=== PATIENT | male | born 1940 | race Caucasian/White ===

== ENCOUNTER → 2016-12-26 | Outpatient (CLI) | payer MEDICARE ==
[~2016-12-26] MED LIST: ADVI200C5 PO; ALEV220C2 PO; ATEN25TA PO; ATEN50TA2 PO; CENTTAB36 PO; COUM2.5T11 PO; PERC5TAB6 PO; TYLE325T5 PO; ZOCO20TA PO
[2016-12-26 11:02] LABS: MEAN CORPUSCULAR HEMOGLOBIN 29.9 pg (27.0-33.0); MEAN CORPUSCULAR VOLUME 87.8 fl (80.0-96.0); RED CELL DISTRIBUTION WIDTH 13.5 % (11.5-14.5); WHITE BLOOD COUNT 8.2 K/mm3 (4.0-10.0)
[2016-12-26 11:24] LABS: INR 1.19
[2016-12-26 11:35] LABS: ALBUMIN 4.2 GM/DL (3.2-5.2); ALKALINE PHOSPHATASE 69 U/L (45-117); ALT/SGPT 22 U/L (12-78); ANION GAP 10 MEQ/L (8-16); AST/SGOT 13 U/L (15-37); BILIRUBIN,TOTAL 0.6 MG/DL (0.2-1.0); BLOOD UREA NITROGEN 24 MG/DL (7-18); CALCIUM LEVEL 9.6 MG/DL (8.8-10.2); CARBON DIOXIDE LEVEL 25 MEQ/L (21-32); CHLORIDE LEVEL 108 MEQ/L (98-107); CREATININE FOR GFR 1.21 MG/DL (0.70-1.30); GLOMERULAR FILTRATION RATE > 60.0 (>42); GLUCOSE, FASTING 94 MG/DL (83-110); POTASSIUM SERUM 4.4 MEQ/L (3.5-5.1); SODIUM LEVEL 143 MEQ/L (136-145)
--- NOTE | 2016-12-26 15:02 | REP ---
CHEST X-RAY: Two views. HISTORY: Atrial fibrillation and gastroesophageal reflux. COMPARISON STUDY: September 14, 2015. FINDINGS: The lungs are well inflated and clear. The pleural angles are sharp. Heart size is normal. Pulmonary vasculature is not increased. The aorta is somewhat tortuous. No significant bony abnormality is seen. IMPRESSION: No active disease. Signed by Harjeet Lentz MD 12/26/2016 04:00 P
--- NOTE | 2016-12-26 17:58 | ECGEPIP ---
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 Electronically Signed On 12-26-2016 17:57:39 EDT by Efrain Ray
== END ==
LOC: M ADMPAT 09:12
PROVIDERS: ATTEND Orthopaedic Surgery
DX: M25.562 Pain in left knee (principal)

== ENCOUNTER 2017-01-09 05:35 | Inpatient (IN) | payer MEDICARE ==
[2016-12-26 09:57] VITALS: BP 124/82
--- NOTE | 2017-01-05 13:26 | HPE ---
DATE OF ADMISSION: 01/09/2017 ADMITTING DIAGNOSIS: Symptomatic left knee osteoarthritis. HISTORY OF PRESENT ILLNESS: This is a pleasant male with continuing symptomatic left knee osteoarthritis. He has consented for a left total knee arthroplasty per Dr. Primitivo Hu. Medical optimization with Dr. Ga per [facility]. ALLERGIES: He had some sort of edema in his lower legs after receiving PENICILLIN post back procedure. MEDICATION LIST: - atenolol 50, one tablet orally once daily Past medical problem list includes symptomatic left knee osteoarthritis. Hypertension. History of atrial fibrillation. Hypercholesteremia. BPH with associated nocturia. Chronic back pain. Vitamin D deficiency. Polymyalgia rheumatica. Renal calculi. 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 History of abnormal resting EKG. His active medical history is symptomatic left knee osteoarthritis. Essential hypertension. Polymyalgia rheumatica. BPH with lower urinary tract symptoms. Hypercholesterolemia. Vitamin D deficiency. His family history is positive for hypertension, hypercholesteremia, arthritis, cancer and thyroid disease. SOCIAL HISTORY: He is a former smoker, occasionally consumes ethanol. Denies illicit drugs. REVIEW OF SYSTEMS: Denies chest pain, shortness of breath, dyspnea on exertion , fever, chills, malaise, upper respiratory or urinary tract symptoms. PHYSICAL EXAMINATION: He is a pleasant, well-developed, well-nourished, white male in no acute distress. Alert oriented times three. Mood and affect are appropriate. Height 70 inches, weight 193. Temperature 97.6, heart rate 64. He ambulates slow steady with favoring of his right lower extremity, antalgia about his left. Bilateral lower extremity is benign, noninfectious looking. Left knee not effused, ecchymotic or erythematous, not hot to touch. He has positive joint line tenderness medially to palpation. Crepitance noted through flexion and extension. Range of motion zero in extension, flexion is past 90. PFJ congruent, static and dynamic. He is stable about the collateral ligaments. Patellar and quad tendons without palpable defects. Can do straight leg raise. No popliteal fossa mass or pain. Left hip range of motion is not limited or irritable through internal and external range of motion. Bowel sounds times four, soft, nontender. Chest rises symmetrically. Lungs clear to auscultation. Neck supple. Negative jugular venous distention (JVD) or bruits. Normocephalic. Chest x-ray showed no acute cardiopulmonary process as read by Dr. Harjeet Lentz on 12/26/2016 via [facility]. EKG result, as read by Dr. Ray, showed sinus bradycardia, left axis deviation. Rule out prior OK. Rhythm change from last study, on 09/29 09/23, showing atrial fibrillation. Labs were reviewed. Nasal sinus culture showed a few Staphylococcus aureus, normal paul present. Urine culture shows no growth. Patient's BUN was 24, chloride level 108. AST 22 , SGOT 13. Prothrombin time 15.2. IMPRESSION: 1. Symptomatic left knee osteoarthritis. 2. Patient consented for left total knee arthroplasty per Dr. Primitivo Hu. 3. Medical optimization per Dr. Ga. 4. On-call to operating room (OR) 600 mg IV clindamycin per PENICILLIN ALLERGY. 5. Sequential compressive device (SCD) and thromboembolism deterrents (TEDs) in OR. MTDD
[2017-01-09] VITALS (7 sets, daily range): BP systolic 127–151; BP diastolic 58–75
[~2017-01-09] VITALS: Ht 182.9 cm; Wt 87.1 kg
[2017-01-09] MEDS ORDERED: LR 1,000 ML IV SCH ×3 (05:45→09:45)
[2017-01-09] MEDS ORDERED: VANCOMYCIN HCL 1,000 MG, VIAL MATE ADAPTER 1 EACH in D5W 250 ML IV ONE (05:45)
[2017-01-09] MEDS ORDERED: ACETAMINOPHEN 500 MG TAB PO ONE (05:45)
[2017-01-09] MEDS ORDERED: fentaNYL 100 MCG/2 ML INJECTION (J3010) As Ordered ONE ×3 (06:41→07:34)
[2017-01-09] MEDS ORDERED: MIDAZOLAM INJ 2 MG/2 ML VIAL (J2250) As Ordered ONE ×2 (06:41→06:59)
[2017-01-09] MEDS ORDERED: PROPOFOL 200 MG/20 ML VIAL As Ordered ONE (06:59)
[2017-01-09] MEDS ORDERED: LIDOCAINE 2% INJ 100 MG/5 ML SDV (FOR ANES.) As Ordered ONE (06:59)
[2017-01-09] MEDS ORDERED: TRANEXAMIC ACID 100 MG/ML 10ML VIAL As Ordered ONE (07:10)
[2017-01-09] MEDS ORDERED: ceFAZolin 1GM INJ (J0690) As Ordered ONE (07:10)
[2017-01-09] MEDS ORDERED: BUPIVACAINE HCL 0.5% 10 ML VIAL As Ordered ONE (07:10)
[2017-01-09] MEDS ORDERED: BUPIVACAINE HCL 0.25% 30 ML VIAL As Ordered ONE (07:10)
[2017-01-09] MEDS ORDERED: EPINEPHrine INJ 1 MG/ML 1ML VIAL/AMP As Ordered ONE (07:11)
[2017-01-09] MEDS ORDERED: ROPIvacaine 0.5% 30 ML INJECTION (J2795) As Ordered ONE ×2 (07:23→07:44)
[2017-01-09] MEDS ORDERED: CLINDAMYCIN INJ 900MG/6ML VIAL As Ordered ONE (07:24)
[2017-01-09] MEDS: ROPIvacaine 0.5% 30 ML INJECTION (J2795) As Ordered ONE ×2 (07:41→08:22)
[2017-01-09] MEDS: TRANEXAMIC ACID 100 MG/ML 10ML VIAL As Ordered ONE ×2 (07:45→08:22)
[2017-01-09] MEDS ORDERED: MIDAZOLAM INJ 2 MG/2 ML VIAL (J2250) IV ONE ×3 (08:00→09:00)
[2017-01-09] MEDS ORDERED: fentaNYL 100 MCG/2 ML INJECTION (J3010) IV ONE ×3 (08:00→09:00)
[2017-01-09] MEDS ORDERED: ONDANSETRON 4MG/2ML VIAL (J2405) As Ordered ONE (08:05)
[2017-01-09] MEDS ORDERED: MORPHINE PCA 1MG/ML 100ML CADD As Ordered ONE (08:55)
[2017-01-09] MEDS: ATENOLOL 50 MG TAB PO SCH (09:00)
[2017-01-09] MEDS ORDERED: ACETAMINOPHEN TAB 650MG DOSE (2X325MG) PO PRN (09:45)
[2017-01-09] MEDS ORDERED: PATIENT IS CURRENTLY ON AN ON-Q PAIN BUSTER PAIN RELIEF SYSTEM XX SCH (09:45)
[2017-01-09] MEDS ORDERED: ONDANSETRON 4MG/2ML VIAL (J2405) IV PRN ×2 (09:45)
[2017-01-09] MEDS ORDERED: NALBUPHINE HCL 10 MG/ML AMP (J2300) IV PRN (09:45)
[2017-01-09] MEDS ORDERED: fentaNYL 100 MCG/2 ML INJECTION (J3010) IV PRN (09:45)
[2017-01-09] MEDS ORDERED: FLEET ENEMA PR PRN (09:45)
[2017-01-09] MEDS ORDERED: MORPHINE PCA 1MG/ML 100ML CADD IV PRN (09:45)
[2017-01-09] MEDS ORDERED: diphenhydrAMINE INJ 50MG/ML VIAL (J1200) IV PRN (09:45)
[2017-01-09] MEDS ORDERED: NALOXONE INJ 0.4 MG/1 ML VIAL (J2310) IV PRN (09:45)
[2017-01-09] MEDS ORDERED: EPIDURAL/PCA KEYS XX PRN (09:45)
[2017-01-09] MEDS ORDERED: METOCLOPRAMIDE INJ 10MG/2ML VIAL (J2765) IV PRN (09:45)
--- NOTE | 2017-01-09 10:03 | RO ---
DATE OF OPERATION: 01/09/2017 PREOPERATIVE DIAGNOSIS: Left knee degenerative arthritis. POSTOPERATIVE DIAGNOSIS: Left knee degenerative arthritis. PROCEDURE: Left total knee arthroplasty using a size 4 cruciate-retaining femoral component with a size 5 tibial tray with a 15 mm rotating-platform polyethylene insert and a 38 mm polyethylene button. The prosthesis was a PFC knee made by [employer]. All components were cemented. SURGEON: Page Hu MD DEVELOPMENT AND PLANNING ENGINEER: Smooth Munoz PA-C ANESTHESIA: Spinal with left femoral nerve block. COMPLICATIONS: None. ESTIMATED BLOOD LOSS: Less than 20 mL. SPECIMENS: Joint surface. DESCRIPTION OF PROCEDURE: After antibiotics were given intravenously preoperatively and a successful spinal and left femoral nerve block anesthetic was induced, the tourniquet was placed on the left upper thigh and not inflated. The left lower extremity was then prepped and draped in the usual sterile fashion. The leg elevated. Then, after appropriate time-out, the tourniquet was inflated, and then a longitudinal incision was made for a medial parapatellar approach to the knee. Bovie cautery used to coagulate crossing vessels. Subperiosteal dissection around the proximal medial portion of the tibia was performed. Then, we everted the patella, flexed the knee, placed the drill down the center of the femoral canal, followed by the intramedullary katrin, and the distal femoral cutting jig set at a 5-degree valgus cut for a left knee at 10-mm resection level. The pins were placed, and the distal cut performed. AP sizing jig measured at between 4 and 5. It was about 4.3. Thus, I decided to go to a size 4. The 3-degree external rotation jig was pinned and then followed by the 4-in-1 block applied to the distal femur. Then, the anterior and posterior chamfer cuts performed, taking great care to protect the soft tissues. We then exposed the proximal tibia, used the extramedullary alignment jig to be sure we were parallel to the mechanical axis, and set it at 4 mm resection level, referencing off the medial tibial condyle. The block was pinned in position, and the proximal tibial osteotomy performed. The lamina grease refiner operator was placed laterally, and we performed a completion of medial meniscectomy, debriding the posterior and medial osteophytes, and then placed the lamina grease refiner operator medially, and performed a completion of lateral meniscectomy with debridement of the posterior and lateral osteophytes. The spacer blocks were trialed, and the 15 fit the best with good symmetry between the flexion and extension gaps. We then exposed the proximal tibia, sized for a size #5 tibial tray, which was then pinned, reamed, and broached; and then the 15 polyethylene trial was applied, and then the femoral component applied, brought the knee into extension, everted the patella, and performed a patellar osteotomy, sized for a 38 button. The lug holes were drilled. Patellofemoral prosthesis was applied, and patellofemoral tracking was anatomic. There was good stability to varus and valgus stress testing, both in flexion and in extension. We drilled the lug holes for the femur, removed all the trial components. My accounting manager assistant controller, Mr. Smooth Munoz, mixed the cement on the back table. He was also critical to the success of the procedure by helping to manipulate the knee, apply appropriate soft tissue retraction, close the wound, help prepare the patient, amongst many other tasks throughout the operation. After all the bony surfaces were copiously irrigated and dried thoroughly, we cemented the tibial tray, removed excess cement, placed the polyethylene, cemented the femoral component, removed excess cement, brought the knee into extension, cemented the polyethylene button, held it with a clamp until the cement had hardened, irrigated while we were waiting for the cement to harden. We then applied the tranexamic acid and then began closing the apex of the arthrotomy with two #1 polydioxanone suture (PDS) sutures, and then medial parapatellar area was closed with a single #1 PDS suture, and then a #1 Stratafix double-arm was used to close the capsule. Then, the tourniquet was released, and then we irrigated the subdermal tissues after applying the PainBuster catheter. Then, closed the deep subdermal tissues with interrupted #2 PDS sutures. The skin was closed with josé miguel, covered by Adaptic dry sterile bulky dressing. He was then transferred to the recovery room in stable condition. There were no intraoperative complications.
[2017-01-09] MEDS ORDERED: ROPIvacaine 0.5% 30 ML INJECTION (J2795) ONE (10:05)
[2017-01-09] MEDS ORDERED: EPINEPHrine INJ 1 MG/ML 1ML VIAL/AMP ONE (10:05)
[2017-01-09] MEDS ORDERED: LIDOCAINE 1% MDV 20ML VIAL ONE (10:05)
[2017-01-09] MEDS: PERCOCET 5MG/325MG TAB PO PRN ×2 (10:07→10:42)
[2017-01-09] MEDS: LR 1,000 ML IV SCH ×2 (14:36→22:15)
[2017-01-09] MEDS ORDERED: WARFARIN SOD 5 MG TAB PO SCH (17:00)
[2017-01-09] MEDS ORDERED: VANCOMYCIN HCL 1,000 MG, VIAL MATE ADAPTER 1 EACH in D5W 250 ML IV SCH (18:00)
[2017-01-10 02:00] VITALS: BP 139/58
[2017-01-10 06:00] VITALS: BP 140/62
[2017-01-10] MEDS ORDERED: PERCOCET 5MG/325MG TAB PO PRN (06:45)
[2017-01-10] MEDS ORDERED: ONDANSETRON 4 MG TAB (S0181) PO PRN (06:45)
[2017-01-10 07:29] LABS: MEAN CORPUSCULAR VOLUME 88.2 fl (80.0-96.0); RED CELL DISTRIBUTION WIDTH 13.2 % (11.5-14.5); WHITE BLOOD COUNT 12.5 K/mm3 (4.0-10.0)
[2017-01-10 07:35] LABS: INR 1.52
[2017-01-10 07:41] LABS: ANION GAP 7 MEQ/L (8-16); BLOOD UREA NITROGEN 15 MG/DL (7-18); CALCIUM LEVEL 9.1 MG/DL (8.8-10.2); CARBON DIOXIDE LEVEL 27 MEQ/L (21-32); CHLORIDE LEVEL 106 MEQ/L (98-107); CREATININE FOR GFR 1.25 MG/DL (0.70-1.30); GLOMERULAR FILTRATION RATE > 60.0 (>42); GLUCOSE, FASTING 131 MG/DL (83-110); POTASSIUM SERUM 4.2 MEQ/L (3.5-5.1); SODIUM LEVEL 140 MEQ/L (136-145)
[2017-01-10] MEDS: MIRALAX *UNIT DOSE* 17GM PACKET PO SCH (08:03)
[2017-01-10] MEDS: ATENOLOL 50 MG TAB PO SCH (08:03)
[2017-01-10] MEDS: MOM 30ML SUSPENSION UDC PO SCH (08:03)
[2017-01-10] MEDS: PERCOCET 5MG/325MG TAB PO PRN ×3 (08:04→16:36)
[2017-01-10] MEDS: SENOKOT S TAB PO SCH ×2 (08:04→20:27)
--- NOTE | 2017-01-10 09:53 | REP ---
LEFT KNEE: AP and lateral views of the left knee are performed. There is a total knee prosthesis with metallic prosthetic components in good position. The structures are well aligned. Metallic skin josé miguel are seen anteriorly. Signed by Power Chaney MD 01/10/2017 05:24 P
[2017-01-10 14:00] VITALS: BP 113/56
[2017-01-10] MEDS ORDERED: WARFARIN SOD 5 MG TAB PO ONE (17:00)
[2017-01-10 22:00] VITALS: BP 121/67
[2017-01-11] MEDS: PERCOCET 5MG/325MG TAB PO PRN ×2 (02:34→10:53)
[2017-01-11 06:00] VITALS: BP 110/63
[2017-01-11 06:50] LABS: MEAN CORPUSCULAR HGB CONC 33.2 g/dl (32.0-36.5); MEAN CORPUSCULAR VOLUME 90.3 fl (80.0-96.0); RED CELL DISTRIBUTION WIDTH 13.3 % (11.5-14.5); WHITE BLOOD COUNT 12.8 K/mm3 (4.0-10.0)
[2017-01-11 06:52] LABS: INR 1.8
[2017-01-11 07:02] LABS: CALCIUM LEVEL 9.8 MG/DL (8.8-10.2); CREATININE FOR GFR 1.3 MG/DL (0.70-1.30); GLOMERULAR FILTRATION RATE 57.4 (>42)
[2017-01-11] MEDS ORDERED: PERC5TAB6 PO (08:27)
[2017-01-11] MEDS ORDERED: COUM2.5T11 PO (08:27)
[2017-01-11] MEDS: MIRALAX *UNIT DOSE* 17GM PACKET PO SCH (09:00)
[2017-01-11] MEDS: MOM 30ML SUSPENSION UDC PO SCH (09:00)
[2017-01-11 10:52] VITALS: BP 110/63
[2017-01-11] MEDS: SENOKOT S TAB PO SCH (10:52)
[2017-01-11] MEDS: ATENOLOL 50 MG TAB PO SCH (10:52)
--- NOTE | 2017-01-13 10:02 | DSES ---
DATE OF ADMISSION: 01/09/2017 DATE OF DISCHARGE: 01/11/2017 ATTENDING PHYSICIAN: Dr. Hu ADMITTING DIAGNOSIS: Symptomatic osteoarthritis of the left knee. OTHER DIAGNOSES: 1. Hypertension. 2. Hyperlipidemia. 3. Benign prostatic hypertrophy. 4. Low back pain. 5. Vitamin D deficiency. 6. Polymyalgia rheumatica. 7. History of atrial fibrillation. 8. History of renal calculi. 9. History of abscess in the epidural space of the lumbar spine. DISCHARGE DIAGNOSIS: Left knee degenerative arthritis status post left total knee arthroplasty. HISTORY OF PRESENT ILLNESS: The patient is a 76-year-old with continuing left knee pain and stiffness. He failed to improve with conservative measures so he elected for a left total knee arthroplasty with Dr. Hu. OPERATE PERFORMED: Left total knee arthroplasty. HOSPITAL COURSE: The patient underwent a left total knee arthroplasty under spinal anesthesia which was uneventful. He was up with physical therapy per their protocol and weightbearing as tolerated on the left lower extremity. The patient was discharged on oral pain medications and will resume his preoperative medications and diet. He will take Coumadin and use his thromboembolic-deterrent stockings for 30 days postoperatively to prevent deep venous thrombosis. He will followup in our office in approximately 12-14 days for a wound check and staple removal. He is encouraged to contact our office sooner if there is any increased pain, drainage, bleeding, redness, numbness or tingling in his leg, fever greater than 101 degrees, or for any other concerns. Please see the medical record for additional details.
== END 2017-01-11 12:00 | disposition home or self-care (01) | DRG 470 ==
LOC: M OR 05:35 → M MS5PR 13:15
PROVIDERS: ADMIT Orthopaedic Surgery; ATTEND Orthopaedic Surgery
PROC: 0SRD0J9 Replacement of Left Knee Joint with Synthetic Substitute, Cemented, Open Approach (ICD-10-PCS; principal; 2017-01-09 07:30)
DX: M17.12 Unilateral primary osteoarthritis, left knee (principal); I10 Essential (primary) hypertension; E78.00 Pure hypercholesterolemia, unspecified; N40.1 Benign prostatic hyperplasia with lower urinary tract symptoms; R35.1 Nocturia; I48.91 Unspecified atrial fibrillation; E55.9 Vitamin D deficiency, unspecified; E78.5 Hyperlipidemia, unspecified; M35.3 Polymyalgia rheumatica; M54.5 Low back pain; Z87.891 Personal history of nicotine dependence; Z87.442 Personal history of urinary calculi; Z88.0 Allergy status to penicillin; Z79.899 Other long term (current) drug therapy

== ENCOUNTER → 2024-07-15 | Outpatient (CLI) | payer MEDICARE ==
[~2024-07-15] MED LIST changes: -COUM2.5T11 PO; +COUM2.5T17 PO; +PERC5TAB12 PO; -PERC5TAB6 PO; +SIMV-253 PO; -ZOCO20TA PO
== END ==
LOC: M RAD 09:46
PROVIDERS: ATTEND Orthopaedic Surgery
DX: Z47.1 Aftercare following joint replacement surgery (principal); Z96.653 Presence of artificial knee joint, bilateral
CPT/HCPCS: 78315; A9503

== ENCOUNTER 2024-12-04 10:30 | Day surgery (SDC) | payer MEDICARE ==
[~2024-12-04] VITALS: Ht 182.9 cm; Wt 85.4 kg
[~2024-12-04 10:30] MED LIST changes: +AMLO25TA PO; +ATOR40TA75 PO; +ELIQ5TAB PO; +LIDOCAINE 3.5 % 1ML OPHTH TOPICAL GEL OU ONE; +SYNT75TA PO; +THERTAB52 PO
[2024-12-04] MEDS ORDERED: MIDAZOLAM INJ 2MG/2ML VIAL As Ordered ONE (12:56)
[2024-12-04] MEDS ORDERED: fentaNYL 100 MCG/2 ML INJECTION As Ordered ONE (12:57)
[2024-12-04] MEDS: POVIDONE-IODINE 5% OPHTH PREP SOL 30ML As Ordered ONE (14:50)
[2024-12-04] MEDS: LIDOCAINE 2% W/EPINEPHRINE 20ML VIAL **PRES FREE As Ordered ONE (14:55)
[2024-12-04] MEDS: TOBRADEX OPHTH OINT 3.5 GM As Ordered ONE (15:00)
[2024-12-04 15:12] VITALS: BP 134/72; TEMP 97.6; O2SAT 96
== END 2024-12-04 15:45 | disposition home or self-care (01) ==
LOC: M SDC 10:30
PROVIDERS: ATTEND Ophthalmology
DX: H02.002 Unspecified entropion of right lower eyelid (principal); I48.91 Unspecified atrial fibrillation; I10 Essential (primary) hypertension; E78.00 Pure hypercholesterolemia, unspecified; K21.9 Gastro-esophageal reflux disease without esophagitis; Z79.899 Other long term (current) drug therapy; Z79.01 Long term (current) use of anticoagulants; Z86.711 Personal history of pulmonary embolism; Z79.82 Long term (current) use of aspirin; Z88.0 Allergy status to penicillin
CPT/HCPCS: 67923; 88305; J2250; J3010